=== PATIENT | female | born 1995 | race Hispanic/Latino ===

== ENCOUNTER 2023-11-28 11:33 | Emergency (ER) | payer BC, MEDICAID ==
[~2023-11-28] VITALS: Ht 154.9 cm; Wt 63.5 kg
[2023-11-28 12:13] VITALS: BP 120/79; PULSE 73; RESP 14
[2023-11-28] MEDS ORDERED: KETOROLAC 30MG VIAL (30MG/ML) IM ONE (13:00)
[2023-11-28] MEDS ORDERED: IBUP-2070 PO (15:04)
== END 2023-11-28 15:20 | disposition home or self-care (01) ==
LOC: EDH 11:33
DX: M79.662 Pain in left lower leg (principal); M79.18 Myalgia, other site
CPT/HCPCS: 99284; 85378; 36415; 73590; 96372; J1885